=== PATIENT | male | born 1975 | race Caucasian/White ===

== ENCOUNTER 2023-02-13 09:27 | Outpatient (CLI) | payer BC, SELFPAY | END 2023-02-13 09:28 | disposition home or self-care (01) | LOC: NFLDREF 02-17 05:55 | PROVIDERS: PCP Family Medicine; Referring Provider Family Medicine; Visit Provider Family Medicine | DX: Z00.00 Encounter for general adult medical examination without abnormal findings (principal); E78.00 Pure hypercholesterolemia, unspecified; F41.8 Other specified anxiety disorders | CPT/HCPCS: 80048; 80061 ==

== ENCOUNTER 2023-06-22 07:25 | Outpatient (CLI) | payer BC, SELFPAY ==
--- NOTE | 2023-06-22 09:06 | W.ANESCHARGE ---
Anesthesia Charges Start Date/Time Anesthesia Start Date: 06/22/23 Anesthesia Start Time: 07:51 Stop Date/Time Anesthesia Stop Date: 06/22/23 Anesthesia Stop Time: 09:04
== END 2023-06-22 07:26 | disposition home or self-care (01) ==
LOC: OP CLINIC 07:25
PROVIDERS: PCP Family Medicine; Visit Provider Surgery
DX: Z12.11 Encounter for screening for malignant neoplasm of colon (principal); K63.5 Polyp of colon
CPT/HCPCS: 00811; 45381; 45385; J2704

== ENCOUNTER 2024-03-27 13:22 | Outpatient (CLI) | payer BC, SELFPAY ==
--- OUTSIDE RECORDS SUMMARY | 2024-03-27 13:25 | XMS_ITS | Referral Summary ---
Author Organization [facility] Address [address] [place] [address] Care Team Providers Care Retail Marketing Manager Name Role Phone None Reported, Pcp Primary Care Provider Unavail able Source Comments Patient records contain information from all sites at [facility]. For routine questions regarding patient records, call [phone] during business hours, M-F 8:00 AM - 5:00 PM Central Time. Record requests for emergency care only can be directed to [phone] at any time.[facility] Active Problems Problem Noted Date Diagnosed Date Major Depressive Disorder Single Episode Unspeci fied 08/12/2009 Overview (11/14/2016): Depression Major NOS Immunizations Name Administration Dates Next Due Tdap 04/23/2014 influenza trivalent vaccine (6 months and older) (PF) 06/29/2008 Social History Tobacco Use Types Packs/Day Years Used Date Smoking Tobacco: Unknown Nutrition Answer Date Recorded Nutrition: EVOO Fat Source Unknown 08/26 Nutrition: Servings of Fruits/Vegetables per Day Not on file 08/26/2020 Dental Answer Date Recorded Dental: Regular Dentist Unknown 08/27/19 21 Sex and Gender Information Value Date Recorded Sex Assigned at Not on file Gender Identity Not on file Sexual Orientation Not on file Last Filed Vital Signs Vital Sign Reading Time Taken Comments Blood Pressure 125/72 09/28/2016 1:15 PM CDT NIBP - Value from [facility]. Pulse 68 09/28/2016 1:45 PM CDT Value from [facility]. Temperature - - Respiratory Rate 19 09/28/2016 1:45 PM CDT Value from [facility]. Oxygen Saturation - - Inhaled Oxygen Concentration - - Weight 106 kg (234 lb 2.1 oz) 09/27/2016 9:17 PM CDT Height 163 cm (5' 4.17) 09/27/2016 9:1 7 PM CDT Body Mass Index 39.97 09/27/2016 9:17 PM CDT Plan of Treatment Not on file Procedures Procedure Name Priority Date/Time Associated Diagnosis Comments ELECTROLYTE (CHEM 4) PANEL, S/P Routine 09/27/2016 10:06 PM CDT LIPID PANEL, S Routine 04/23/2014 10:06 AM CDT from Last 3 Months or Most Recently Relevant to Health Maintenance Results * (ABNORMAL) Electrolyte (Chem 4) Panel (09/27/2016 10:06 PM CDT) Chloride, S 100 98 - 107 MMOL/L [facility] HX Bicarbonate, P/S 22 22 - 29 MMOL/L [facility] eGFR-Black/Afri can Peruvian >60 >60 ML/MIN/BSA [facility] BUN (Blood Urea Nitrogen), S 15 8 - 24 MG/DL [facility] Sodium, S 139 135 - 145 MMOL/L [facility] Potassium, S 4.9 3.6 - 5.2 MMOL/L [facility] Creatinine 1.1 0.8 - 1.3 MG/DL [facility] eGFR Non-Black/Afric an Peruvian >60 >60 ML/MIN/BSA [facility] Anion Gap 17(H) 7 - 15 [facility] Glucose, S 143(H) 70 - 140 MG/DL [facility] 09/27/2016 10:0 6 PM CDT 09/27/2016 10:06 PM CDT Luz Toscano M.D. LAB BLOOD ADD-ON [facility] [address] * (ABNORMAL) Lipid Panel (04/23/2014 10:06 AM CDT) Calculated LDL 154(H) 0 - 100 [facility] Total Cholesterol/HDL Ratio 4.54(H) 2.20 - 4.40 [facility] Cholesterol, Total 227(H) <=200 MG[facility] HX HDL 50 40 - 60 [facility] Triglycerides 116 <=150 MGDL [facility] HXLDL/HDL 3 [facility] Blood 04/23/2014 10:0 6 AM CDT Andrea Sauer M.D. LAB BLOOD ADD-ON [facility] from Last 3 Months or Most Recently Relevant to Health Maintenance Care Teams Retail Marketing Manager Relationship Specialty Start Date End Date None Reported, Pcp PCP - General 06/07/23
--- OUTSIDE RECORDS SUMMARY | 2024-03-27 13:25 | XMS_ITS | Clinical Summary ---
Author Organization [facility] Address [address] [place] [address] Care Team Providers Care Milk Receiver Tank Truck Name Role Phone None Reported, Pcp Primary Care Provider Unavail able Source Comments Patient records contain information from all sites at [facility]. For routine questions regarding patient records, call [phone] during business hours, M-F 8:00 AM - 5:00 PM Central Time. Record requests for emergency care only can be directed to [phone] at any time.[facility] Active Problems Problem Noted Date Diagnosed Date [...] 09/27/2016 9:17 PM CDT Plan of Treatment Health Maintenance Due Date Last Done Comments CT Colonography 1977 Cologuard 1977 Colonoscopy 1977 Colorectal Cancer Screening 1977 Depression Monitoring (PHQ-9) 1977 FIT 1977 HIV Screening 1977 Hepatitis C Screening 1977 Hepatitis B Vaccines (1 of 3 - 19+ 3-dose series) 1996 Lipid (Cholesterol) Screening 04/23/2019 04/23/2014 Fasting Glucose for Diabetes Screening 09/28/2019 09/27/2016, 09/26/2016, 04/23/2014 COVID-19 Vaccine (2023- season) 2024 Influenza Vaccine (#1) 2024 06/29/2008 DTaP,Tdap,and Td Vaccines (4 - Td or Tdap) 02/13/2033 02/13/2023, 04/23/2014, 08/16/2005, Additional history exists Pneumococcal vaccine (0-64 years) Aged Out No longer eligible based on patient's age to complete this topic Procedures Procedure Name Priority Date/Time Associated Diagnosis Comments ELECTROLYTE (CHEM 4) PANEL, S/P Routine 09/27/2016 10:06 PM CDT LIPID PANEL, S Routine 04/23/2014 10:06 AM CDT from Last 3 Months or Most Recently Relevant to Health Maintenance Results * (ABNORMAL) Electrolyte (Chem 4) Panel (09/27/2016 10:06 PM CDT) Chloride, S 100 98 - 107 MMOL/L [facility] HX Bicarbonate, P/S 22 22 - 29 MMOL/L [facility] eGFR-Black/Afri can Citizen Of [place] >60 >60 ML/MIN/BSA [facility] BUN (Blood Urea Nitrogen), S 15 8 - 24 MG/DL [facility] Sodium, S 139 135 - 145 MMOL/L [facility] Potassium, S 4.9 3.6 - 5.2 MMOL/L [facility] Creatinine 1.1 0.8 - 1.3 MG/DL [facility] eGFR Non-Black/Afric an Citizen Of [place] >60 >60 ML/MIN/BSA [facility] Anion Gap 17(H) 7 - 15 [facility] Glucose, S 143(H) 70 - 140 MG/DL [facility] 09/27/2016 10:0 6 PM CDT 09/27/2016 10:06 PM CDT Luz Toscano M.D. LAB BLOOD ADD-ON [facility] [address] * (ABNORMAL) Lipid Panel (04/23/2014 10:06 [...] Recently Relevant to Health Maintenance Care Teams Milk Receiver Tank Truck Relationship Specialty Start Date End Date None Reported, Pcp PCP - General 06/07/23
--- OUTSIDE RECORDS SUMMARY | 2024-03-27 13:25 | XMS_ITS ---
Author Organization [facility] Address [address] [place] [address] Care Team Providers Care Food Prep Worker Name Role Phone Unavailable Unavailable Unavailable Surgery Details Not on file Complications Check Surgery Details section. Procedure Estimated Blood Loss Check Surgery Details section. Procedure Findings Check Surgery Details section. Procedure Specimens Taken Check Surgery Details section.
--- OUTSIDE RECORDS SUMMARY | 2024-03-27 13:25 | XMS_ITS | Clinical Summary ---
Author Organization [facility] Address [place], [place] [address] Care Team Providers Care Seasonal Clerk Name Role Phone Andrea Sauer MD Primary Care Provider [phone] Allergies No known active allergies Medications Medication Sig Dispensed Refills Start Date End Date Status busPIRone (BUSPAR) 10 mg tablet TK 1 T PO BID 2 12/23/2018 Active escitalopram oxalate (LEXAPRO) 10 mg tablet TK 1 T PO D 3 10/27/2018 A ctive Social History Tobacco Use Types Packs/Day Years Used Date Smoking Tobacco: Never Smokeless Tobacco: Current Chew Comments:Vapes Alcohol Use Standard Drinks/Week Comments Yes 2.5 (1 standard drink = 0.6 oz p ure alcohol) Sex and Gender Information Value Date Recorded Sex Assigned at Not on file Gender Identity Not on file Sexual Orientation Not on file Obstetrics History Last Filed Vital Signs Vital Sign Reading Time Taken Comments Blood Pressure 141/75 11/27/2023 9:27 AM CDT Pulse 77 11/27/2023 9:27 AM CDT Temperature 36.4 ??C (97.5 ??F) 11/27/2023 9:27 AM CD T Respiratory Rate 16 11/27/2023 9:27 AM CDT Oxygen Saturation 97% 11/27/2023 9:27 AM CDT Inhaled Oxygen Concentration - - Weight 84.8 kg (186 lb 14.4 oz) 11/27/2023 9:27 AM CDT Height 185.4 cm (6' 1) 11/27/2023 9:27 AM CDT Body Mass Index 24.66 11/27/2023 9:27 AM CDT Plan of Treatment Health Maintenance Due Date Last Done Comments Tdap 1988 Depression screening for age 12+ 1989 HIV for age 15-65 1992 BMI (ht and wt on same day) for age 18+ 1995 Hepatitis C screening for ag e 18-79 1995 Tetanus booster 1997 Colonoscopy through age 75 2022 Lipids for age 45-75 2022 COVID-19 vaccine series ( season) 2024 Influenza for age 9-49 02/24/2024 Pneumococcal series for age 6-64 Aged Out No longer eligible based on patient's age to complete this topic Care Teams Seasonal Clerk Relationship Specialty Start Date End Date Andrea Sauer MD PCP - General Family Practice 03/21/14
== END 2024-03-27 13:23 | disposition home or self-care (01) ==
PROVIDERS: PCP Family Medicine; Visit Provider Family Medicine
DX: Z00.00 Encounter for general adult medical examination without abnormal findings (principal); M35.3 Polymyalgia rheumatica; E78.00 Pure hypercholesterolemia, unspecified; R35.0 Frequency of micturition; F41.8 Other specified anxiety disorders; R63.4 Abnormal weight loss; Z12.5 Encounter for screening for malignant neoplasm of prostate
CPT/HCPCS: 80053; 80061; 84443; G0103

== ENCOUNTER 2025-04-20 14:14 | Outpatient (CLI) | payer BC, SELFPAY | END 2025-04-20 14:15 | disposition home or self-care (01) | PROVIDERS: PCP Family Medicine; Visit Provider Family Medicine | DX: Z00.00 Encounter for general adult medical examination without abnormal findings (principal); E78.00 Pure hypercholesterolemia, unspecified; F41.8 Other specified anxiety disorders | CPT/HCPCS: 80053; 80061; 82306; 86803; G0103 ==